=== PATIENT | male | born 1955 | race Caucasian/White ===

== ENCOUNTER 2018-11-28 16:45 | Emergency (ER) | payer OTHER ==
--- NOTE | 2018-11-28 17:18 | EDPHY ---
H & P Stated Complaint: SOB, stopped taking clozaril on Thursday Time Seen by Provider: 11/28/18 17:02 HPI/ROS: Chief Complaint: General malaise, nausea, shortness of breath HPI: 63-year-old male with a history of nonspecified mental illness who normally takes clots oral. He has been on happy with his care by his mental health providers so abruptly discontinued his Clozaril 2 days ago. He says since that time he feels short of breath when he is using his cigarette. He says he is coming to the hospital today because he wants to feel better. He got here on a bus from home. Denies any fevers or chills. No cough. No headache. No nausea or vomiting. He does have general malaise and feeling shaky. ROS: 10 systems were reviewed and were negative except those elements noted in the HPI. PMH: Unspecified mental illness Social History: Uses E cigarettes, no alcohol, no recreational drug use Family History: non-contributory Physical Exam: Gen: Awake, Alert, No Distress HEENT: Nose: no rhinorrhea Eyes: PERRLA, EOMI Mouth: Moist mucosa Neck: Supple, no JVD Chest: nontender, lungs clear to auscultation Heart: S1, S2 normal, no murmur Abd: Soft, non-tender, no guarding Back: no CVA tenderness, no midline tenderness Ext: no edema, non-tender Skin: no rash Neuro: CN II-XII intact, Sensation grossly intact, Strength 5/5 in bilateral upper and lower extremities - Personal History Current Tetanus/Diphtheria Vaccine: Unsure Current Tetanus Diphtheria and Acellular Pertussis (TDAP): Unsure - Medical/Surgical History Hx Asthma: No Hx Chronic Respiratory Disease: No Hx Diabetes: No Hx Cardiac Disease: No Hx Renal Disease: No Hx Cirrhosis: No Hx Alcoholism: No Hx HIV/AIDS: No Hx Splenectomy or Spleen Trauma: No Other PMH: bipolar, PTSD, emphysema - Social History Smoking Status: Current every day smoker Constitutional: Initial Vital Signs Temperature (C) 36.6 C 11/28/18 16:45 Heart Rate 76 11/28/18 16:45 Respiratory Rate 18 11/28/18 16:45 Blood Pressure 152/87 H 11/28/18 16:45 O2 Sat (%) 98 11/28/18 16:45 O2 Delivery Mode Room Air Allergies/Adverse Reactions: No Known Allergies Allergy (Verified 11/28/18 16:55) Home Medications: Medication Instructions Recorded Clozaril 11/28/18 Medical Decision Making ED Course/Re-evaluation: 63-year-old male who abruptly discontinued his Clozaril and is subsequently feeling unwell from this. I have explained to him at length that Clozaril is a medication that you must taper and that it is not meant to abruptly discontinue. I have explained to him that if he wishes to feel better he should resume taking his Clozaril and speak with his physicians about having it tapered over the next 2 weeks. Patient states he is not wish to continue taking his Clozaril. He wants to meet with his real estate associate attorney. He denies being suicidal or homicidal. He is not hallucinating. He is awake alert and appropriate. He is able to rash to explain to me why does not wish to take his medication. He does not need any criteria for mental health hold at this time. Patient is asking me to treat him to get him feeling better. Again I have explained to him that he will feel better if he resumes his Clozaril. He says he does not wish to do this. I have told him I do not have any of further suggestions at this time. He says that he wishes to leave and will go home and follow up as an outpatient. Departure - Departure Disposition: Home, Routine, Self-Care Clinical Impression: Malaise Condition: Good Instructions: Fatigue (ED) Additional Instructions: I strongly suggest that you resume taking your Clozaril and work with your provider about weaning this does over the next 2 weeks. Follow up with [facility] in 1-2 days for further evaluation. Return emergency department for any other concerns. Referrals: [facility],. [Clinic] - As per Instructions
[2018-11-28 17:40] VITALS: BP 143/88
== END 2018-11-28 17:49 | disposition home or self-care (01) ==
LOC: EDUNIT#
DX: R53.81 Other malaise (principal); F17.200 Nicotine dependence, unspecified, uncomplicated

== ENCOUNTER 2018-12-28 16:52 | Observation (INO) | payer OTHER ==
[2018-12-28] MEDS ORDERED: NS 1,000 ML IV ONE (18:06)
--- NOTE | 2018-12-28 18:14 | EDPHY ---
H & P Stated Complaint: weakness - Personal History Current Tetanus/Diphtheria Vaccine: Yes Current Tetanus Diphtheria and Acellular Pertussis (TDAP): Yes - Medical/Surgical History Hx Asthma: No Hx Chronic Respiratory Disease: Yes Hx Diabetes: No Hx Cardiac Disease: No Hx Renal Disease: No Hx Cirrhosis: No Hx Alcoholism: No Hx HIV/AIDS: No Hx Splenectomy or Spleen Trauma: No Other PMH: bipolar, PTSD, emphysema - Social History Smoking Status: Current every day smoker Time Seen by Provider: 12/28/18 17:50 HPI/ROS: Chief complaint: Leg weakness History of present illness: This is a 63-year-old male who presents to the emergency department with leg weakness. Reports the onset of symptoms over the last few days. He states he can still move them, however he cannot move for long becomes quickly exhausted and has to sit down. He was recently diagnosed with influenza. He is not on antiviral therapy. He has persistent cold symptoms including cough. Denies other associated signs or symptoms including no weakness in the upper extremities. No paresthesias. No back pain. Review of systems: A 10 point review of systems was obtained and other than described above was negative (David Monge) - Physical Exam Exam: General Appearance: Alert, unwell appearing. Eyes: Pupils equal and round no pallor or injection. ENT, Mouth: Mucous membranes moist. Respiratory: There are no retractions, lungs are clear to auscultation. Cardiovascular: Tachycardic with regular rhythm. Gastrointestinal: Abdomen is soft and non tender, no masses, bowel sounds normal. Neurological: Alert and oriented x4. Strength and sensation is intact and symmetrical. Reflexes symmetrical and intact in the lower extremities. Straight leg raise test is negative bilaterally. Skin: Warm and dry, no rashes. Musculoskeletal: Neck is supple non tender. Extremities are symmetrical, full range of motion. Psychiatric: Patient is oriented X 3, there is no agitation. (Davdi Mnoge) Constitutional: Initial Vital Signs Temperature (C) 36.6 C 12/28/18 17:03 Heart Rate 111 H 12/28/18 17:03 Respiratory Rate 16 12/28/18 17:03 Blood Pressure 113/82 H 12/28/18 17:03 O2 Sat (%) 96 12/28/18 17:03 O2 Delivery Mode Room Air Allergies/Adverse Reactions: No Known Allergies Allergy (Verified 12/28/18 17:03) Home Medications: Medication Instructions Recorded cloZAPine [Clozapine] 200 mg PO DAILY 12/28/18 cloZAPine [Clozapine] 400 mg PO HS 12/28/18 cloZAPine [Clozaril Odt] 50 mg PO HS 12/28/18 Medical Decision Making - Diagnostics Imaging: I viewed and interpreted images myself - Diagnostics Imaging Results: Imaging Impressions Chest X-Ray 12/28/18 18:06 Impression: Left base consolidation - early pneumonia versus atelectasis or aspiration. Findings discussed with Emergency Department physician anesthesiologist assistant, LAQUITA Cooper at 12/28/2018 19:03. ED Course/Re-evaluation: Patient seen in conjunction with my secondary supervising physician Dr. Ernesto White. Patient presents with progressive weakness in his lower extremities. In addition he has ongoing cold symptoms. He has a nonfocal neurologic exam. Evaluation is concerning for a left lower lobe pneumonia. I believe the weakness is secondary to his infection. He is IV hydrated. He is started on Rocephin and azithromycin. He is admitted to Dr. Pablito Castro for continued evaluation and care. (David Monge) Differential Diagnosis: Included but limited to infectious pathology, anemia, electrolyte disturbances, doubtful central nervous system issue (David Monge) Other Provider: 8:25 p.m. I did evaluate this patient independently. I agree that he has pneumonia clinically on auscultation. He is generally weak. He has no focal weakness on exam. He is not hypoxic or febrile. He is coughing up productive sputum. Will add viral panel as well as start on antibiotics and admit for weakness. (Ernesto White) - Data Points Laboratory Results: Laboratory Results 12/28/18 18:12 12/28/18 18:12 12/28/18 12/28/18 20:35 18:12 Procalcitonin 0.06 ng/mL ng/mL (0.02-0.10) Nasal Influenza A PCR FLU A DETECTED H (NEGATIVE) Nasal Influenza B PCR NEGATIVE FOR FLU B (NEGATIVE) Medications Given: Clozapine (Clozaril) 50 mg PO HS ROCHELLE Stop: 06/26/19 23:44 Last Admin: 12/29/18 00:04 Dose: 50 mg Clozapine (Clozaril) 400 mg PO HS ROCHELLE Stop: 06/26/19 23:44 Last Admin: 12/29/18 00:04 Dose: 400 mg Guaifenesin/Dextromethorphan (Robitussin Dm Oral Liquid) 10 ml PO Q4HRS PRN PRN Reason: Cough, Moderate Stop: 06/27/19 01:16 Last Admin: 12/29/18 01:31 Dose: 10 ml Melatonin (Melatonin) 3 mg PO HS ROCHELLE Stop: 06/26/19 21:59 Last Admin: 12/29/18 00:04 Dose: 3 mg Discontinued Medications Sodium Chloride (Ns) 1,000 mls @ 0 mls/hr IV EDNOW ONE; Wide Open PRN Reason: Protocol Stop: 12/28/18 18:07 Last Admin: 12/28/18 18:50 Dose: 1,000 mls Azithromycin 500 mg/ Sodium (Chloride) 255 mls @ 255 mls/hr IV EDNOW ONE PRN Reason: Protocol Stop: 12/28/18 21:26 Last Admin: 12/28/18 21:49 Dose: 255 mls Ceftriaxone Sodium/Dextrose (Rocephin 1 Gm (Premix)) 50 mls @ 100 mls/hr IV EDNOW ONE PRN Reason: Protocol Stop: 12/28/18 20:56 Last Admin: 12/28/18 21:00 Dose: 50 mls Departure - Departure Disposition: Home, Routine, Self-Care Clinical Impression: Pneumonia Qualifiers: Pneumonia type: due to unspecified organism Laterality: left Lung location: lower lobe of lung Qualified Code(s): J18.1 - Lobar pneumonia, unspecified organism Condition: Fair
[2018-12-28 18:34] LABS: PLATELET COUNT 345 10^3/uL (150-400)
[2018-12-28] MEDS ORDERED: AZITHROMYCIN IV 500 MG in NS 250 ML IV ONE (20:27)
[2018-12-28] MEDS ORDERED: ZOLPIDEM TARTRATE 5 MG TAB PO PRN (21:08)
[2018-12-28] MEDS ORDERED: ACETAMINOPHEN 325 MG TAB PO PRN (21:08)
--- NOTE | 2018-12-28 21:57 | PDGENHP ---
History and Physical History and Physical: CC: Generalized weakness HISTORY: This patient comes into the ER because of generalized weakness that has been present for more than a week but getting worse. He says he had flu- like symptoms with cough headache myalgias nausea around 10 days ago and no symptoms of largely resolved. However since then he has gradually become weaker and having more trouble walking. He is able to walk finds that standing or walking for more than 30 sec or so makes him feel like he is going to possibly fall though he has not fallen. There is no focal weakness. There are no other focal neurologic symptoms tremors or other changes. He is not having fevers. There is a slight cough residual from the respiratory illness. Is hard to tell whether he is having actual shortness of breath or not talking to him. He is not having fever symptoms at this point. ROS: A comprehensive 10 system review revealed no other significant findings PAST MEDICAL HISTORY: Mental health disorder unclear the diagnosis, takes Clozaril Tobacco abuse - currently E cigarette but in past has smoked as much as 4 packs per day FAMILY MEDICAL HISTORY: No concerning SOCIAL HISTORY: Primary care physician is Dr. Babatunde Llamas at [facility] Lives here in [place] MEDICATIONS: The patients list has been reconciled by our clinical pharmacist in the EMR. I have reviewed the list and ordered appropriate medicines. PHYSICAL EXAMINATION: Vital Signs: Initial pulse is 111 but has come down to the 80s spontaneously in the ER, other vital signs normal no fever Examination: General: alert, oriented, good mentation, relaxed, looks tired Neurologic: No focal weakness, in particular the legs in ankles and toes are strong throughout, normal speech/language, normal pack changer Skin: warm, dry, good color, no rash HEENT: normal Neck: no mass or jvd Resps: relaxed Lungs: clear breath sounds Heart: regular, no murmur Abdomen: soft, nondistended, nontender, +BS, no mass Upper Extremities: normal Lower Extremities: no edema, warm No Bleeding or bruising IV site: looks normal LABORATORY DATA: Diabetes BC 9600 with neutrophil predominance, minimal anemia at 12.1 normal platelets Sodium 134 otherwise unremarkable basic metabolic panel Procalcitonin normal at 0.06 RADIOLOGY STUDIES: Two-view chest x-ray done in the ER I reviewed the images: There is minimal subtle density at the left lower lobe laterally in a very small area of uncertain significance, not able to entirely rule out infiltrate ASSESSMENT: * Generalized/postural weakness, gait instability with fall risk * Borderline hypoglycemia * Influenza a, with symptoms for approximately 10 days under resolving so that Tamiflu unlikely to be helpful * In the ER a diagnosis of pneumonia was made and he was given antibiotic. Procalcitonin is normal, he is not hypoxemic and is afebrile, the chest x-ray findings are unimpressive. If there is pneumonia certainly is extremely mild and with no signs of sepsis or respiratory failure especially given his smoking history. * Mental health illness chronic stable on medicine PLANS: * I have asked the nurses check orthostatic vital signs * IV hydration * Will not continue antibiotics at this time of follow his respiratory status closely and watching for any signs of fever * Tamiflu not indicated at present * Fall risk precautions * PT and OT I have reviewed the patient's case in detail with David Monge of the ER I have reviewed the patient's past medical records as part of this assessment, including previous hospital admission records
[2018-12-29] MEDS: cloZAPine 100 MG TAB PO SCH ×3 (00:04→20:46)
[2018-12-29] MEDS: MELATONIN 3 MG TAB PO SCH ×2 (00:04→20:46)
[2018-12-29] MEDS: cloZAPine 25 MG TAB PO SCH ×2 (00:04→20:45)
[2018-12-29] MEDS ORDERED: GUAIFENESIN/DM 10 ML UDCUP PO PRN (01:17)
[2018-12-29] MEDS ORDERED: BENZONATATE 100 MG CAP PO PRN (01:17)
[2018-12-29 05:38] LABS: PLATELET COUNT 323 10^3/uL (150-400)
[2018-12-29] MEDS: ENOXAPARIN 40 MG/0.4 ML SYR SC SCH (09:11)
--- NOTE | 2018-12-29 09:39 | ASMTCMCOM ---
CM Note CM Note Notes: Pts case discussed w/ Priscila Mcgrath NP. Pt is a 63 y/o man admitted for pneumonia. Pt will most likely d/c independent when medically stable. No therapies ordered at this time. CM available for changes. Plan: Independent Date Signed: 12/29/2018 09:38 AM Electronically Signed By:VASHTI Stark
--- NOTE | 2018-12-29 10:19 | HOSPPROG ---
Hospitalist Progress Note Assessment/Plan: Mr Page is 63 y/o male who came to the ER with generalized weakness, cough, headache and myalgias. It was noted he has the flu. *influenza A -supportive treatment -symptoms occurred >10 days ago so not Tamiflu given -concern for pna (procalcitonin is stable, wbc stable, on room air; stop abx), chest x ray shows some left base consolidation? -blood cx pending *generalized weakness -ask PT & OT to see *mental illness -home meds resumed *anemia *plan: patient is fearful he can't care for himself at home as of yet, will have PT and OT see. Continue supportive care. Subjective: Darin has no complaints but is worried about going home to care for himself. Objective: Vital Signs Temp Pulse Resp BP Pulse Ox 36.4 C 93 18 118/73 91 L 12/29/18 07:40 12/29/18 07:40 12/29/18 07:40 12/29/18 07:40 12/29/18 07:40 Laboratory Results 12/29/18 04:57 12/28/18 12/29/18 12/30/18 05:59 05:59 05:59 Intake Total 1600 Output Total 2775 Balance -1175 - Physical Exam Constitutional: no apparent distress Eyes: PERRL Ears, Nose, Mouth, Throat: hearing normal Cardiovascular: regular rate and rhythym Respiratory: no respiratory distress, clear to auscultation Gastrointestinal: normoactive bowel sounds Skin: warm Neurologic: AAOx3 Psychiatric: interacting appropriately, poor insight ICD10 Worksheet Patient Problems: Problems Problem Status Onset Pneumonia Acute
--- NOTE | 2018-12-29 16:55 | ASMTCMCOM ---
CM Note CM Note Notes: PT worked w/ pt and recommending HC and using a walker while ambulating. Loan closet list provided however, pt reports that his only friend is out of town and cannot help. CM is able to provide pt w/ a walker from case management donation closet. CM met w/ pt for dispo planning. Pt is agreeable to a referral made to HC. [facility] is able to accept. CM to follow. Plan: [facility]; PT Date Signed: 12/29/2018 04:54 PM Electronically Signed By:VASHTI Stark
--- NOTE | 2018-12-30 08:55 | HOSPPROG ---
Hospitalist Progress Note Assessment/Plan: Mr Page is 63 y/o male who came to the ER with generalized weakness, cough, headache and myalgias. It was noted he has the flu. *influenza A -supportive treatment -symptoms occurred >10 days ago so not Tamiflu given -concern for pna (procalcitonin is stable, wbc stable, on room air; stop abx), chest x ray shows some left base consolidation? -blood cx shows no growth *generalized weakness -PT recommended front wheel walker, CM has one for him *mental illness -home meds resumed (on Clozaril) *anemia *plan: home care and walker Subjective: Darin is feeling much better today, eating and drinking well. Objective: Vital Signs Temp Pulse Resp BP Pulse Ox 36.9 C 101 H 18 123/70 H 90 L 12/30/18 08:00 12/30/18 08:00 12/30/18 08:00 12/30/18 08:00 12/30/18 08:00 Laboratory Results 12/29/18 04:57 12/29/18 12/30/18 12/31/18 05:59 05:59 05:59 Intake Total 1600 840 Output Total 2775 930 Balance -1175 -90 - Physical Exam Constitutional: no apparent distress Eyes: PERRL Ears, Nose, Mouth, Throat: hearing normal Cardiovascular: regular rate and rhythym Respiratory: no respiratory distress, rhonchi (few in left base), other (loose productive cough) Skin: warm Musculoskeletal: generalized weakness Neurologic: AAOx3 Psychiatric: interacting appropriately, poor insight ICD10 Worksheet Patient Problems: Problems Problem Status Onset Pneumonia Acute
[2018-12-30] MEDS: ENOXAPARIN 40 MG/0.4 ML SYR SC SCH (10:32)
[2018-12-30] MEDS: cloZAPine 100 MG TAB PO SCH (10:34)
--- NOTE | 2018-12-30 10:57 | PDIAF ---
- Diagnosis Diagnosis: influenza A Code Status: Full Code - Medication Management Discharge Medications: electronically signed and located in the Home Medication List. - Orders Services needed: Home Care, Registered Nurse, Physical Therapy Home Care Face to Face: I certify that this patient was under my care and that I had the required [id number] encounter meeting the encounter requirements on the discharge day. My findings support the fact that the patient is homebound as defined in Home Care Face to Face Continued: CMS Chapter 7 Medicare Benefits Manual 30.1.1 , The condition of the patient is such that there exists a normal inability to leave home and consequently, leaving home would require a considerable and taxing effort. Isolation Type: Droplet Isolation Diet Recommendation: no restrictions on diet Diet Texture: Regular Texture Diet Additional Instructions: follow up w Dr Llamas in 2 weeks, get repeat labs (a CBC) and a follow up chest xray a home care physical therapist will f/u with you if you develop fevers, chills; return to the ER sleep up on a few pillows to help with your cough you are not contagious, you had the flu symptoms December 17 and not infecting others - Labs/Radiology HCT/HGB Date: 01/06/18 (call Dr Llamas for results) - Follow Up Care Current Providers and Referrals: Babatunde Llamas MD [Primary Care Provider] - As per Instructions
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
[2018-12-30 11:19] VITALS: BP 112/79
--- NOTE | 2018-12-30 11:21 | GDS ---
[f rep st] DISCHARGE SUMMARY DISCHARGE DIAGNOSES: 1. Influenza A. 2. Generalized weakness. 3. Mental illness. 4. Anemia. HISTORY OF PRESENT ILLNESS: Briefly, the patient is a 63-year-old gentleman who came to the ER with general weakness, cough, headache, and myalgias. It was noted that he had influenza A. He his symptoms started back on December 17, so he was not given the Tamiflu. He is feeling markedly better. He will be discharged home with home care. HOSPITAL COURSE: 1. Influenza A. supportive treatment. He is eating and drinking well. He has a very loose cough noted. 2. Generalized weakness. PT is recommending a front-wheeled walker. Case Management has arranged for him to get one. 3. Mental illness, on Clozaril. 4. Anemia. Hemoglobin and hematocrit are little bit lower than his baseline. This could be dilutional. Will have these rechecked in a week and called to his primary care doctor. DISCHARGE CONDITION: Stable. Blood pressure is 122/70, heart rate of 90, respiratory rate of 18, O2 sats on room air 92% temperature 37.1 Celsius. MEDICATIONS AT DISCHARGE: Please see the EMR. DISCHARGE INSTRUCTIONS: 1. To follow up with Dr. Llamas and get a repeat x-ray in a few weeks. 2. Physical Therapy will follow with him at home. 3. For him to know he is no longer contagious. His symptoms started greater than 12 days ago. 4. If he develops fever, chills, chest pain, to return to the ER. /[id number]/MODL MTDD
== END 2018-12-30 13:00 | disposition home health service (06) ==
LOC: INTOOBSV 20:55 → F3E 22:20
PROVIDERS: ADMIT Internal Medicine; ATTEND Internal Medicine
DX: J11.1 Influenza due to unidentified influenza virus with other respiratory manifestations (principal); D64.9 Anemia, unspecified; R53.1 Weakness; F31.9 Bipolar disorder, unspecified; F43.10 Post-traumatic stress disorder, unspecified; J43.9 Emphysema, unspecified; F17.210 Nicotine dependence, cigarettes, uncomplicated
CPT/HCPCS: 71046; 96361; 96365; 96367; 96372; 97116; 97161; 97530; 99285; G0378; J0456; J0696; J1650